=== PATIENT | female | born 1950 | race Caucasian/White ===

== ENCOUNTER 2016-07-17 18:17 | Emergency (ER) | payer MEDICARE, OTHER ==
[2016-07-17] MEDS ORDERED: SODIUM CHLORIDE 0.9% 1,000 ML IV STA (18:40)
--- NOTE | 2016-07-17 18:52 | ED ---
General Adult HPI - General Source: EMS, RN notes reviewed Mode of arrival: EMS Limitations: altered mental status <Alexis Power - Last Filed: 07/17/16 19:58> <Max Craig - Last Filed: 07/17/16 22:29> - General Chief complaint: Fall Stated complaint: Fall/altered Time Seen by Provider: 07/17/16 18:24 - History of Present Illness Initial comments: patient is 66-year-old female who presents emergency room today by EMS, with chief complaint of a fall. Patient does admit to drinking earlier today. She states she had 2 beers. She states she does not remember falling. She states she does have a hematoma to the left side of her head. She denies any neck pain but does admit to a mild headache. she admits a small abrasion of the left knee and right forearm.She denies any other complaints here the emergency room. she denies any cough congestion. Family members at bedside state that she did stand up and fall over hitting her head. States she didn't lose consciousness for approximately a minute. States when she came to she was awake and alert. They deny any other complaints. States she is acting appropriate at this time.Patient denies any recent fever, chills, shortness of breath, chest pain, back pain, abdominal pain, nausea or vomiting, numbness or tingling, dysuria or hematuria, constipation or diarrhea, visual changes, or any other complaints. (Alexis Power) - Related Data Home Medications Medication Instructions Recorded Confirmed Folic Acid 1 mg PO DAILY 07/28/13 07/17/16 Gabapentin [Neurontin] 600 mg PO TID 07/28/13 07/17/16 Hydrocodone/Acetaminophen 1 tab PO TID PRN 07/28/13 07/17/16 [Hydrocodone/Acetaminophen 7.5-325] LORazepam [Ativan] 1 mg PO DAILY PRN 07/28/13 07/17/16 Loratadine [Claritin] 10 mg PO DAILY 07/28/13 07/17/16 Methotrexate Sodium [Methotrexate] 20 mg PO Q7D 07/28/13 07/17/16 Metoprolol Tartrate [Lopressor] 50 mg PO BID 07/28/13 07/17/16 Ciprofloxacin Ophth Soln [Cipro 1 drops LEFT EYE TID 07/17/16 07/17/16 Ophth Soln] Fluticasone Nasal Raven [Flonase 1 spr EA NOSTRIL BID 07/17/16 07/17/16 Nasal Raven] Ketorolac 0.5% Ophth Soln [Acular] 1 drops LEFT EYE BID 07/17/16 07/17/16 predniSONE 5 mg PO DAILY 07/17/16 07/17/16 prednisoLONE ACETATE 1% OPHTH 1 drops LEFT EYE QID 07/17/16 07/17/16 [Pred Forte 1%] Allergies Allergy/AdvReac Type Severity Reaction Status Date / Time No Known Allergies Allergy Verified 07/17/16 18:42 Review of Systems ROS Other: All systems not noted in ROS Statement are negative. <Alexis Power - Last Filed: 07/17/16 19:58> ROS Other: All systems not noted in ROS Statement are negative. <Max Craig - Last Filed: 07/17/16 22:29> ROS Statement: Those systems with pertinent positive or pertinent negative responses have been documented in the HPI. Past Medical History Past Medical History: Fibromyalgia, Hypertension, Rheumatoid Arthritis (RA) Additional Past Medical History / Comment(s): IRREGULAR HEART BEAT, SEASONAL ALLERGIES,SOB WITH ACTIVITY, HX OF INFECTIOUS HEPATITIS 1970, History of Any Multi-Drug Resistant Organisms: MRSA Date of last positivie culture/infection: 03/01/2013 MDRO Source:: RIGHT LEG Additional Past Surgical History / Comment(s): LEFT HAND SURGERY Past Anesthesia/Blood Transfusion Reactions: No Reported Reaction Past Psychological History: Anxiety, Depression Smoking Status: Former smoker Past Alcohol Use History: Daily Additional Past Alcohol Use History / Comment(s): 3-4 BEERS DAILY Past Drug Use History: None Reported - Past Family History Mother Family Medical History: Myocardial Infarction ([place]) Father Family Medical History: Cancer Sister(s) Family Medical History: Cancer, CVA/TIA Brother(s) Family Medical History: Cancer, CVA/TIA <Alexis Power - Last Filed: 07/17/16 19:58> General Exam Limitations: altered mental status <Alexis Power - Last Filed: 07/17/16 19:58> <Max Craig - Last Filed: 07/17/16 22:29> - General Exam Comments Initial Comments: General: The patient is awake and alert, in no distress, and does not appear acutely ill. currently cervical collar Eye: Pupils are equal, round and reactive to light, extra-ocular movements are intact. No nystagmus. There is normal conjunctiva bilaterally. No signs of icterus. Ears, nose, mouth and throat: There are moist mucous membranes and no oral lesions. Neck: The neck is supple, there is no tenderness or JVD. Cardiovascular: There is a regular rate and rhythm. No murmur, rub or gallop is appreciated. Respiratory: Lungs are clear to auscultation, respirations are non-labored, breath sounds are equal. No wheezes, stridor, rales, or rhonchi. Gastrointestinal: Soft, non-distended, non-tender abdomen without masses or organomegaly noted. There is no rebound or guarding present. No CVA tenderness. Bowel sounds are unremarkable. Musculoskeletal: Normal ROM, no tenderness. Strength 5/5. Sensation intact. Pulses equal bilaterally 2+. Neurological: A&O x 3. CN II-XII intact, There are no obvious motor or sensory deficits. Coordination appears grossly intact. Speech is normal. Skin: alto bruises to the extremities. Small abrasion over the left knee and right forearm measuring less than a centimeter. No active bleeding. Hematoma to the left side of the forehead. Mild bruising green in color. Skin is warm and dry and no rashes or lesions are noted. Psychiatric: Cooperative, appropriate mood & affect, normal judgment. (Alexis Power) Course <Alexis Power - Last Filed: 07/17/16 19:58> <Max Craig - Last Filed: 07/17/16 22:29> Vital Signs 07/17/16 07/17/16 07/17/16 18:28 19:03 21:28 Temperature 99.0 F 100.1 F H 98 F Pulse Rate 83 104 H 84 Respiratory 16 16 18 Rate Blood Pressure 184/113 131/89 162/102 O2 Sat by Pulse 93 L 94 L 96 Oximetry - Reevaluation(s) Reevaluation #1: 07/17/16 19:[address] is negative for any acute fracture dislocation of cervical spine. No mass, hemorrhage or midline shift of the brain. There is hematoma to the left side. No other acute abnormalities. Patient's chest x-ray and urinalysis currently pending at this time. Case was discussed signed out to Dr. Craig. ( Alexis Power) Medical Decision Making - Lab Data Result diagrams: 07/17/16 18:38 07/17/16 18:38 <Alexis Power - Last Filed: 07/17/16 19:58> - Lab Data Result diagrams: 07/17/16 18:38 07/17/16 18:38 <Max Craig - Last Filed: 07/17/16 22:29> - Lab Data Lab Results 07/17/16 07/17/16 07/17/16 Range/Units 18:38 18:38 19:55 WBC 5.2 (3.8-10.6) k/uL RBC 3.59 L (3.80-5.40) m/uL Hgb 12.4 (11.4-16.0) gm/dL Hct 36.1 (34.0-46.0) % MCV 100.5 H (80.0-100.0) fL MCH 34.4 (25.0-35.0) pg MCHC 34.3 (31.0-37.0) g/dL RDW 12.9 (11.5-15.5) % Plt Count 228 (150-450) k/uL Neutrophils % 53 % Lymphocytes % 32 % Monocytes % 7 % Eosinophils % 2 % Basophils % 2 % Neutrophils # 2.7 (1.3-7.7) k/uL Lymphocytes # 1.7 (1.0-4.8) k/uL Monocytes # 0.4 (0-1.0) k/uL Eosinophils # 0.1 (0-0.7) k/uL Basophils # 0.1 (0-0.2) k/uL Sodium 132 L (137-145) mmol/L Potassium 4.0 (3.5-5.1) mmol/L Chloride 97 L (98-107) mmol/L Carbon Dioxide 21 L (22-30) mmol/L Anion Gap 14 mmol/L BUN 9 (7-17) mg/dL Creatinine 0.60 (0.52-1.04) mg/dL Est GFR (MDRD) Af Amer >60 (>60 ml/min/1.73 sqM) Est GFR (MDRD) Non-Af >60 (>60 ml/min/1.73 sqM) Glucose 92 (74-99) mg/dL Calcium 8.7 (8.4-10.2) mg/dL Total Bilirubin 0.4 (0.2-1.3) mg/dL AST 55 H (14-36) U/L ALT 48 (9-52) U/L Alkaline Phosphatase 50 (38-126) U/L Total Protein 7.0 (6.3-8.2) g/dL Albumin 4.4 (3.5-5.0) g/dL Lipase 71 (23-300) U/L Urine Color Colorless Urine Appearance Clear (Clear) Urine pH 5.0 (5.0-8.0) Ur Specific [place] 1.002 (1.001-1.035) Urine Protein Negative (Negative) Urine Glucose (UA) Negative (Negative) Urine Ketones Negative (Negative) Urine Blood Negative (Negative) Urine Nitrite Negative (Negative) Urine Bilirubin Negative (Negative) Urine Urobilinogen <2.0 (<2.0) mg/dL Ur Leukocyte Esterase Negative (Negative) Serum Alcohol 293 mg/dL Disposition <Alexis Power - Last Filed: 07/17/16 19:58> <Max Craig - Last Filed: 07/17/16 22:29> Clinical Impression: Fall, Alcohol intoxication, Multiple contusions Disposition: HOME SELF-CARE Condition: Fair Instructions: Alcohol Intoxication (ED) Referrals: Nara Walters MD [Primary Care Provider] - 1-2 days
[2016-07-17 18:53] LABS: Basophils # (A) 0.1 k/uL (0-0.2); Basophils % (A) 2 %; CH 34.1; CHCM 34.1; Eosinophils # (A) 0.1 k/uL (0-0.7); Eosinophils % (A) 2 %; HCT 36.1 % (34.0-46.0); HDW 2.07; HGB 12.4 gm/dL (11.4-16.0); Luc # (Auto) 0.23; Luc % (Auto) 5; Lymphocytes # (A) 1.7 k/uL (1.0-4.8); Lymphocytes % (A) 32 %; MCH 34.4 pg (25.0-35.0); MCHC 34.3 g/dL (31.0-37.0); MCV 100.5 fL (80.0-100.0); Mean Platelet Volume 6.5; Monocytes # (A) 0.4 k/uL (0-1.0); Monocytes % (A) 7 %; Neutrophils # (A) 2.7 k/uL (1.3-7.7); Neutrophils % (A) 53 %; RBC 3.59 m/uL (3.80-5.40); RDW 12.9 % (11.5-15.5); WBC 5.2 k/uL (3.8-10.6); WBC (Perox) 4.94
[2016-07-17 19:08] LABS: ALT 48 U/L (9-52); AST 55 U/L (14-36); Alkaline Phosphatase 50 U/L (38-126); Anion Gap 14 mmol/L; Blood Urea Nitrogen 9 mg/dL (7-17); Calcium 8.7 mg/dL (8.4-10.2); Carbon Dioxide 21 mmol/L (22-30); Chloride 97 mmol/L (98-107); Glucose 92 mg/dL (74-99); Non-African American GFR(MDRD) >60 (>60 ml/min/1.73 sqM); Sodium 132 mmol/L (137-145); Total Bilirubin 0.4 mg/dL (0.2-1.3)
[2016-07-17 19:12] LABS: Alcohol 293 mg/dL
--- NOTE | 2016-07-17 19:53 | CT ---
EXAMINATION TYPE: CT brain davidine wo con DATE OF EXAM: 07/17/2016 7:26 PM COMPARISON: NONE HISTORY: FALL INJURY TODAY. CONFUSION. CT DLP: 1243.0 mGycm Automated exposure control for dose reduction was used. TECHNIQUE: CT scan of the head and cervical spine are performed without contrast. FINDINGS: There is a 3 cm soft tissue hematoma overlying the left frontal bone, with adjacent soft ti ssue swelling, but there is no underlying skull fracture. There is no acute intracranial hemorrhage, mass effect, or midline shift identified. The ventricles and sulci are within normal limits in size . The globes are intact and the visualized sinuses are clear. Cervical spine is visualized in its entirety from C1 through upper thoracic levels and demonstrates s atisfactory alignment without evidence of acute fracture or dislocation. Prevertebral soft tissue ap pears within normal limits. Prominent multilevel cervical spondylosis changes are appreciated. The C1 -C2 articulation is unremarkable. IMPRESSION: 1. There is no acute fracture or dislocation evident in the cervical spine. 2. No acute intracranial hemorrhage, mass effect, or midline shift is seen. However, 3 cm subcutaneou s soft tissue hematoma overlying the left frontal bone.
[2016-07-17 20:07] LABS: Appearance,Urine Clear (Clear); Bilirubin,Urine Negative (Negative); Glucose,Urine (UA) Negative (Negative); Ketones,Urine Negative (Negative); Leukocyte Esterase,Urine Negative (Negative); Nitrite,Urine Negative (Negative); Protein,Urine Negative (Negative); Specific Gravity,Urine 1.002 (1.001-1.035); UA Billing (MACRO vs. MICRO) CHEM; Urobilinogen,Urine <2.0 mg/dL (<2.0)
--- NOTE | 2016-07-17 21:09 | XR ---
EXAMINATION TYPE: XR chest 2V DATE OF EXAM: 07/17/2016 8:39 PM COMPARISON: NONE HISTORY: Trauma TECHNIQUE: Frontal and lateral views of the chest are obtained. FINDINGS: There is no focal air space opacity, pleural effusion, or pneumothorax seen. The cardiac silhouette size is within normal limits. The osseous structures are intact. IMPRESSION: No acute cardiopulmonary process.
[2016-07-17 21:30] VITALS: RESP 18
[2016-07-17 22:38] VITALS: BP 134/81; PULSE 75; TEMP 97.4
== END 2016-07-17 22:39 | disposition home or self-care (01) ==
LOC: EC 18:17
DX: S80.02XA Contusion of left knee, initial encounter (principal); S50.11XA Contusion of right forearm, initial encounter; S00.83XA Contusion of other part of head, initial encounter; F10.129 Alcohol abuse with intoxication, unspecified; R41.82 Altered mental status, unspecified; M79.7 Fibromyalgia; M06.9 Rheumatoid arthritis, unspecified; F41.9 Anxiety disorder, unspecified; Z87.891 Personal history of nicotine dependence; Z79.51 Long term (current) use of inhaled steroids; Z79.899 Other long term (current) drug therapy; Z91.048 Other nonmedicinal substance allergy status; W01.10XA Fall on same level from slipping, tripping and stumbling with subsequent striking against unspecified object, initial encounter
CPT/HCPCS: 36415; 70450; 71020; 72125; 80053; 80320; 81003; 83690; 85025; 96360; 96361; 99284

== ENCOUNTER → 2018-02-24 | Outpatient (CLI) | payer MEDICARE, OTHER ==
--- NOTE | 2018-03-13 08:59 | MM ---
Reason for exam: screening (asymptomatic). History: Patient is postmenopausal and has history of endometrial cancer at age 42. Family history of breast cancer in maternal aunt. Rt. benign breast biopsy. MG 3D Screening Mammo W/Cad Bilateral CC and MLO view(s) were taken. XCCL view(s) were taken of the right breast. The breast tissue is heterogeneously dense. This may lower the sensitivity of mammography. There are benign-appearing round dystrophic left breast calcifications. No discrete abnormality. ASSESSMENT: Benign, BI-RAD 2 RECOMMENDATION: Routine screening mammogram of both breasts in 1 year.
== END | disposition home or self-care (01) ==
LOC: RADMAMWWP 06:54
PROVIDERS: ATTEND Family Medicine
DX: Z12.31 Encounter for screening mammogram for malignant neoplasm of breast (principal)
CPT/HCPCS: 77063; 77067

== ENCOUNTER 2019-09-27 08:17 | Day surgery (SDC) | payer MEDICARE, OTHER ==
[2019-09-16 15:45] VITALS: BMI 17.7
[~2019-09-27 08:17] MED LIST: LACTATED RINGERS 1,000 ML IV SCH; LIDOCAINE 1% (10MG/ML) FOR IV START INTRADERMA PRN
[2019-09-27 08:54] VITALS: TEMP 97.6
[2019-09-27] MEDS ORDERED: fentaNYL (PF) 50 MCG/ML 2 ML AMP ONE (09:39)
[2019-09-27] MEDS ORDERED: MIDAZOLAM 2 MG/2 ML VIAL ONE (09:39)
[2019-09-27] MEDS ORDERED: LIDOCAINE 1% INJ 10MG/ML (20 ML MDV) ONE (09:39)
[2019-09-27] MEDS ORDERED: PROPOFOL 10 MG/ML 20 ML VIAL IV ONE (09:39)
--- NOTE | 2019-09-27 10:13 | P.PCN ---
Date of Procedure: 09/27/19 Description of Procedure: BRIEF HISTORY: Patient is a 69-year-old female presenting for outpatient colonoscopy presenting for malignant neoplasm of the colon. No change in bowel habits, blood per rectum or abdominal pain. Last colonoscopy 10 years ago per her recollection. PROCEDURE PERFORMED: Colonoscopy with polypectomy. PREOPERATIVE DIAGNOSIS: Screening for malignant neoplasm of the colon, last colonoscopy 10 years ago. ESTIMATED BLOOD LOSS: Minimal. IV sedation per Anesthesia. PROCEDURE: After informed consent was obtained, the patient, was brought into the endoscopy unit. IV sedation was administered by Anesthesia under continuous monitoring. Digital rectal examination was normal. Initially the Olympus CF-190 flexible video colonoscope was then inserted in the rectum, gradually advanced into the cecum without any difficulty. Careful examination was performed as the scope was gradually being withdrawn. Ileocecal valve and the appendiceal orifice were visualized and appeared normal. Prep was excellent. Mucosa of the cecum, ascending colon, transverse colon, descending colon, sigmoid colon, and rectum appeared normal. A few scattered diverticula in the left colon. A diminutive 2 mm rectal polyp removed with cold forcep polypectomy. Retroflexion was performed in the rectum and no lesions were seen, moderate-grade internal hemorrhoids noted. The patient tolerated the procedure well. IMPRESSION: Diminutive rectal polyp removed with cold forceps. Mild left colonic diverticulosis. Moderate internal hemorrhoids. RECOMMENDATIONS: Findings of this examination were discussed with the patient. Okay to resume diet. Okay to resume medication. Await pathology from polypectomy. Would recommend repeat colonoscopy in 7 years pending pathology from polypectomy.
[2019-09-27 10:16] VITALS: RESP 30
[2019-09-27 11:24] VITALS: BP 133/70; PULSE 66
== END 2019-09-27 10:45 | disposition home or self-care (01) ==
LOC: ORWHC2ENDO 08:17
PROVIDERS: ATTEND Internal Medicine
DX: Z12.11 Encounter for screening for malignant neoplasm of colon (principal); K62.1 Rectal polyp; K57.30 Diverticulosis of large intestine without perforation or abscess without bleeding; K64.8 Other hemorrhoids; I10 Essential (primary) hypertension; J44.9 Chronic obstructive pulmonary disease, unspecified; Z87.891 Personal history of nicotine dependence; F41.9 Anxiety disorder, unspecified; F32.9 Major depressive disorder, single episode, unspecified; M06.9 Rheumatoid arthritis, unspecified; M79.7 Fibromyalgia; Z79.51 Long term (current) use of inhaled steroids; Z79.52 Long term (current) use of systemic steroids; Z79.899 Other long term (current) drug therapy
CPT/HCPCS: 45380; J2250; J2001; J3010; J2704; 88305

== ENCOUNTER → 2021-04-25 | Outpatient (CLI) | payer MEDICARE, OTHER ==
--- NOTE | 2021-04-26 13:25 | MM ---
Reason for exam: screening (asymptomatic). Last mammogram was performed 3 years and 2 months ago. History: Patient is postmenopausal and has history of endometrial cancer at age 42. Family history of breast cancer in maternal aunt. Physical Findings: A clinical breast exam by your physician is recommended on an annual basis and results should be correlated with mammographic findings. MG 3D Screening Mammo W/Cad Bilateral CC and MLO view(s) were taken. Prior study comparison: February 24, 2018, bilateral MG 3d screening mammo w/cad. July 05, 2014, mammogram, performed at [facility]. June 28, 2014, mammogram, performed at [facility]. The breast tissue is heterogeneously dense. This may lower the sensitivity of mammography. There is no discrete abnormality. No significant changes when compared with prior studies. ASSESSMENT: Negative, BI-RAD 1 RECOMMENDATION: Routine screening mammogram of both breasts in 1 year.
== END | disposition home or self-care (01) ==
LOC: RADMAMWWP 11:45
PROVIDERS: ATTEND Family Medicine
DX: Z12.31 Encounter for screening mammogram for malignant neoplasm of breast (principal); Z78.0 Asymptomatic menopausal state; Z80.3 Family history of malignant neoplasm of breast
CPT/HCPCS: 77063; 77067

== ENCOUNTER 2021-05-17 10:44 | Emergency (ER) | payer MEDICARE, OTHER ==
[2021-05-17 10:49] VITALS: RESP 18
[2021-05-17 12:33] LABS: Basophils % (A) 1 %; Eosinophils # (A) 0.2 k/uL (0-0.7); Eosinophils % (A) 2 %; HCT 43.6 % (34.0-46.0); HGB 14.3 gm/dL (11.4-16.0); Lymphocytes # (A) 1.5 k/uL (1.0-4.8); Lymphocytes % (A) 17 %; MCH 33.9 pg (25.0-35.0); MCHC 32.8 g/dL (31.0-37.0); MCV 103.4 fL (80.0-100.0); Macrocytosis Slight; Mean Platelet Volume 7.5; Monocytes # (A) 0.3 k/uL (0-1.0); Monocytes % (A) 4 %; Neutrophils # (A) 6.8 k/uL (1.3-7.7); Neutrophils % (A) 76 %; Platelet Count 265 k/uL (150-450); RBC 4.22 m/uL (3.80-5.40); RDW 13.1 % (11.5-15.5); WBC 8.9 k/uL (3.8-10.6)
--- NOTE | 2021-05-17 12:41 | XR ---
EXAMINATION TYPE: XR chest 2V DATE OF EXAM: 05/17/2021 COMPARISON: 07/17/2016 TECHNIQUE: PA and lateral views submitted. HISTORY: Dysrhythmia FINDINGS: The lungs are clear and there is no pneumothorax, pleural effusion, or focal pneumonia. Hyperinflat ion. No overt failure. Chronic widening of the right AC joint correlate for any acute joint injury. C orrelate for COPD. Hypertrophic and degenerative change of the spine. IMPRESSION: 1. No acute process. Correlate for COPD.
[2021-05-17 12:43] LABS: ALT 23 U/L (4-34); AST 35 U/L (14-36); African American GFR (CKD) >90 (>60 ml/min/1.73 sqM); Albumin 4.7 g/dL (3.5-5.0); Alkaline Phosphatase 61 U/L (38-126); Anion Gap 7 mmol/L; Blood Urea Nitrogen 18 mg/dL (7-17); Calcium 9.3 mg/dL (8.4-10.2); Carbon Dioxide 24 mmol/L (22-30); Chloride 105 mmol/L (98-107); Glucose 119 mg/dL (74-99); Magnesium 2.1 mg/dL (1.6-2.3); Non-African American GFR(CKD) >90 (>60 ml/min/1.73 sqM); Sodium 136 mmol/L (137-145); Total Bilirubin 1.1 mg/dL (0.2-1.3); Total Protein 8.1 g/dL (6.3-8.2)
[2021-05-17 12:45] LABS: Potassium 4.3 mmol/L (3.5-5.1)
[2021-05-17 13:02] LABS: INR 0.9 (<1.2); Partial Thromboplastin Time 22.8 sec (22.0-30.0); Prothrombin Time 10.4 sec (9.0-12.0)
--- NOTE | 2021-05-17 13:18 | ED ---
General Adult HPI - General Chief complaint: Arrhythmia/Palpitations Stated complaint: ML Time Seen by Provider: 05/17/21 12:05 Source: patient, RN notes reviewed, old records reviewed Mode of arrival: ambulatory Limitations: no limitations - History of Present Illness Initial comments: 71-year-old female presenting with 2 complaints, first complaint is one month of sore throat and painful swallowing. She has history of rheumatoid arthritis and is on daily steroids. She also has had palpitations which is been also intermittent over the past one month. There is no associated chest pain. She's had no fever. She has had mild dyspnea which is baseline for her with history of COPD. No vomiting or diarrhea. She is able to swallow but has pain with swallowing. - Related Data Home Medications Medication Instructions Recorded Confirmed Folic Acid 1 mg PO DAILY 07/28/13 09/16/19 Gabapentin [Neurontin] 600 mg PO TID 07/28/13 09/16/19 Hydrocodone/Acetaminophen 1 tab PO TID PRN 07/28/13 09/27/19 [Hydrocodone/Acetaminophen 7.5-325] LORazepam [Ativan] 1 mg PO DAILY PRN 07/28/13 09/27/19 Metoprolol Tartrate [Lopressor] 50 mg PO BID 07/28/13 09/16/19 metHOTREXate sodium [Methotrexate] 20 mg PO Q7D 07/28/13 09/16/19 predniSONE 5 mg PO QAM 07/17/16 09/23/19 Cetirizine HCl [Zyrtec] 10 mg PO DAILY 09/16/19 09/16/19 Fluticasone/Vilanterol [Breo 1 inhalation INHALATION QAM 09/16/19 09/23/19 Ellipta 200-25 Mcg INH] Ibuprofen [Motrin] 600 mg PO Q8HR PRN 09/16/19 09/16/19 Propylene Glycol/Peg 400 [Systane 1 drop BOTH EYES DIRECTED PRN 09/16/19 09/16/19 Ultra 0.4-0.3% Eye Drp] Umeclidinium Queen [Incruse 1 puff INHALATION QAM 09/16/19 09/23/19 Ellipta] Zolpidem [Ambien] 10 mg PO HS PRN 09/16/19 09/27/19 Previous Rx's Medication Instructions Recorded Fluconazole [Diflucan] 200 mg PO DAILY #14 tab 03/18/22 Nystatin [Nystatin Oral Susp] 400,000 unit PO Q6H 7 Days #200 ml 05/17/21 Allergies Allergy/AdvReac Type Severity Reaction Status Date / Time No Known Allergies Allergy Verified 09/27/19 08:38 Review of Systems ROS Statement: Those systems with pertinent positive or pertinent negative responses have been documented in the HPI. ROS Other: All systems not noted in ROS Statement are negative. Past Medical History Past Medical History: Cancer, COPD, Fibromyalgia, Hypertension, Rheumatoid Arthritis (RA), Skin Disorder Additional Past Medical History / Comment(s): IRREGULAR HEART BEAT, SEASONAL ALLERGIES,SOB WITH ACTIVITY, HX OF INFECTIOUS HEPATITIS 1970, cervical cancer years ago, finished antibiotic today for healing scratches from nieghbor[employer] dog- both legs near ankles, daily steroids for "several years" for RA History of Any Multi-Drug Resistant Organisms: MRSA Date of last positivie culture/infection: 03/01/2013 MDRO Source:: RIGHT LEG Additional Past Surgical History / Comment(s): RIGHT HAND SURGERY, colonoscopy, colposcopy years ago Past Anesthesia/Blood Transfusion Reactions: No Reported Reaction Past Psychological History: Anxiety, Depression Smoking Status: Former smoker - Past Family History Mother Family Medical History: Myocardial Infarction ([place]) Father Family Medical History: Cancer Sister(s) Family Medical History: Cancer, CVA/TIA Brother(s) Family Medical History: Cancer, CVA/TIA General Exam Limitations: no limitations General appearance: alert, in no apparent distress Head exam: Present: atraumatic, normocephalic Eye exam: Present: normal appearance, PERRL, EOMI ENT exam: Present: other (Posterior oropharynx mildly erythematous with oral candidiasis) Respiratory exam: Present: normal lung sounds bilaterally, decreased breath sounds. Absent: respiratory distress Cardiovascular Exam: Present: regular rate, normal rhythm GI/Abdominal exam: Present: soft. Absent: distended, tenderness, guarding, rebound Extremities exam: Present: normal inspection, normal capillary refill Neurological exam: Present: alert, oriented X3, CN II-XII intact. Absent: motor sensory deficit Psychiatric exam: Present: normal affect, normal mood Skin exam: Present: warm, dry, intact. Absent: cyanosis, diaphoretic Course Vital Signs 05/17/21 10:47 Temperature 98.2 F Pulse Rate 94 Respiratory 18 Rate Blood Pressure 125/82 O2 Sat by Pulse 96 Oximetry - Reevaluation(s) Reevaluation #1: 05/17/21 13:49 Patient eager for discharge. EKG Findings - EKG Comments: EKG Findings:: KG: Sinus rhythm with first-degree AV block, low voltage rate of 88, TN interval 235, QRS duration 74, QTC 382 Medical Decision Making - Medical Decision Making 71-year-old female presenting with sore throat and painful swallowing. She does have oral candidiasis on exam. Additionally she's had some palpitations. This is evaluated with EKG, chest x-ray, laboratory testing which is essentially unremarkable. I do suggest this patient should follow with gastroenterology regarding endoscopy for this painful swallowing. Additionally she should continue to follow with her primary care physician. Return parameters are discussed. She is prescribed nystatin and fluconazole. - Lab Data Result diagrams: 05/17/21 12:24 05/17/21 12:24 Lab Results 05/17/21 05/17/21 05/17/21 Range/Units 12:24 12:24 12:24 WBC 8.9 (3.8-10.6) k/uL RBC 4.22 (3.80-5.40) m/uL Hgb 14.3 (11.4-16.0) gm/dL Hct 43.6 (34.0-46.0) % MCV 103.4 H (80.0-100.0) fL MCH 33.9 (25.0-35.0) pg MCHC 32.8 (31.0-37.0) g/dL RDW 13.1 (11.5-15.5) % Plt Count 265 (150-450) k/uL MPV 7.5 Neutrophils % 76 % Lymphocytes % 17 % Monocytes % 4 % Eosinophils % 2 % Basophils % 1 % Neutrophils # 6.8 (1.3-7.7) k/uL Lymphocytes # 1.5 (1.0-4.8) k/uL Monocytes # 0.3 (0-1.0) k/uL Eosinophils # 0.2 (0-0.7) k/uL Basophils # 0.0 (0-0.2) k/uL Macrocytosis Slight PT 10.4 (9.0-12.0) sec INR 0.9 (<1.2) APTT 22.8 (22.0-30.0) sec Sodium 136 L (137-145) mmol/L Potassium 4.3 (3.5-5.1) mmol/L Chloride 105 (98-107) mmol/L Carbon Dioxide 24 (22-30) mmol/L Anion Gap 7 mmol/L BUN 18 H (7-17) mg/dL Creatinine 0.60 (0.52-1.04) mg/dL Est GFR (CKD-EPI)AfAm >90 (>60 ml/min/1.73 sqM) Est GFR (CKD-EPI)NonAf >90 (>60 ml/min/1.73 sqM) Glucose 119 H (74-99) mg/dL Calcium 9.3 (8.4-10.2) mg/dL Magnesium 2.1 (1.6-2.3) mg/dL Total Bilirubin 1.1 (0.2-1.3) mg/dL AST 35 (14-36) U/L ALT 23 (4-34) U/L Alkaline Phosphatase 61 (38-126) U/L Troponin I (0.000-0.034) ng/mL Total Protein 8.1 (6.3-8.2) g/dL Albumin 4.7 (3.5-5.0) g/dL 05/17/21 Range/Units 12:24 WBC (3.8-10.6) k/uL RBC (3.80-5.40) m/uL Hgb (11.4-16.0) gm/dL Hct (34.0-46.0) % MCV (80.0-100.0) fL MCH (25.0-35.0) pg MCHC (31.0-37.0) g/dL RDW (11.5-15.5) % Plt Count (150-450) k/uL MPV Neutrophils % % Lymphocytes % % Monocytes % % Eosinophils % % Basophils % % Neutrophils # (1.3-7.7) k/uL Lymphocytes # (1.0-4.8) k/uL Monocytes # (0-1.0) k/uL Eosinophils # (0-0.7) k/uL Basophils # (0-0.2) k/uL Macrocytosis PT (9.0-12.0) sec INR (<1.2) APTT (22.0-30.0) sec Sodium (137-145) mmol/L Potassium (3.5-5.1) mmol/L Chloride (98-107) mmol/L Carbon Dioxide (22-30) mmol/L Anion Gap mmol/L BUN (7-17) mg/dL Creatinine (0.52-1.04) mg/dL Est GFR (CKD-EPI)AfAm (>60 ml/min/1.73 sqM) Est GFR (CKD-EPI)NonAf (>60 ml/min/1.73 sqM) Glucose (74-99) mg/dL Calcium (8.4-10.2) mg/dL Magnesium (1.6-2.3) mg/dL Total Bilirubin (0.2-1.3) mg/dL AST (14-36) U/L ALT (4-34) U/L Alkaline Phosphatase (38-126) U/L Troponin I <0.012 (0.000-0.034) ng/mL Total Protein (6.3-8.2) g/dL Albumin (3.5-5.0) g/dL Disposition Clinical Impression: Palpitations, Thrush of mouth and esophagus Disposition: HOME SELF-CARE Condition: Good Instructions (If sedation given, give patient instructions): Heart Palpitations (ED), Oral Candidiasis (ED) Prescriptions: Fluconazole [Diflucan] 200 mg PO DAILY #14 tab Nystatin [Nystatin Oral Susp] 400,000 unit PO Q6H 7 Days #200 ml Is patient prescribed a controlled substance at d/c from ED?: No Referrals: Nara Walters MD [Primary Care Provider] - 1-2 days Lindsay Oneill MD [STAFF PHYSICIAN] - 1-2 days Time of Disposition: 13:44
[2021-05-17 14:52] VITALS: BP 127/80; PULSE 68; TEMP 98.7
== END 2021-05-17 13:59 | disposition home or self-care (01) ==
LOC: EC 10:44
DX: R00.2 Palpitations (principal); B37.0 Candidal stomatitis; Z87.891 Personal history of nicotine dependence; J44.9 Chronic obstructive pulmonary disease, unspecified; I10 Essential (primary) hypertension; M06.9 Rheumatoid arthritis, unspecified; M79.7 Fibromyalgia; Z79.899 Other long term (current) drug therapy; Z79.51 Long term (current) use of inhaled steroids
CPT/HCPCS: 36415; 71046; 80053; 83735; 84484; 85025; 85610; 85730; 93005; 99285

== ENCOUNTER 2021-06-12 12:18 | Observation (INO) | payer MEDICARE, OTHER ==
[2021-06-12] MEDS ORDERED: IPRATROPIUM 0.5 MG/2.5 ML NEBU INHALATION STA (12:47)
[2021-06-12] MEDS ORDERED: ALBUTEROL NEBULIZED 2.5 MG/3 ML INHALATION STA (12:47)
[2021-06-12] MEDS ORDERED: methylPREDNISolone SOD SUCCI 125 MG/2 ML VIAL IV STA (12:47)
--- NOTE | 2021-06-12 12:56 | ED ---
General Adult HPI - General Chief complaint: Shortness of Breath Stated complaint: ML Time Seen by Provider: 06/12/21 12:20 Source: patient, RN notes reviewed, old records reviewed Mode of arrival: wheelchair Limitations: no limitations - History of Present Illness Initial comments: This is a 71-year-old female presents emergency Department complaining of difficulty breathing over the last 2 weeks and she states is getting progressively worse. Patient states she has been diagnosed with COPD in the past - Related Data Home Medications Medication Instructions Recorded Confirmed Folic Acid 1 mg PO DAILY 07/28/13 06/12/21 Gabapentin [Neurontin] 600 mg PO BID 07/28/13 06/12/21 Hydrocodone/Acetaminophen 1 tab PO Q8H PRN 07/28/13 06/12/21 [Hydrocodone/Acetaminophen 7.5-325] Metoprolol Tartrate [Lopressor] 50 mg PO BID 07/28/13 06/12/21 metHOTREXate sodium [Methotrexate] 10 mg PO MO 07/28/13 06/12/21 predniSONE 5 mg PO DAILY 07/17/16 06/12/21 Cetirizine HCl [Zyrtec] 10 mg PO DAILY 09/16/19 06/12/21 Fluticasone/Vilanterol [Breo 1 puff INHALATION RT-DAILY 09/16/19 06/12/21 Ellipta 200-25 Mcg INH] Umeclidinium [place] [Incruse 1 puff INHALATION RT-DAILY 09/16/19 06/12/21 Ellipta] Zolpidem [Ambien] 10 mg PO HS PRN 09/16/19 06/12/21 Dorzolamide HCl/Pf [Dorzolamide 2% 1 drop BOTH EYES DAILY 06/12/21 06/12/21 Eye Drop] Ibuprofen [Motrin] 800 mg PO Q8H PRN 06/12/21 06/12/21 Latanoprost [Xalatan 0.005%] 1 drop RIGHT EYE HS 06/12/21 06/12/21 Tocilizumab [Actemra] 162 mg SQ Q14D 06/12/21 06/12/21 Triamcinolone 0.1% Ointment 1 applic TOPICAL BID 06/12/21 06/12/21 [Kenalog 0.1% Ointment] Allergies Allergy/AdvReac Type Severity Reaction Status Date / Time No Known Allergies Allergy Verified 06/12/21 13:32 Review of Systems ROS Statement: Those systems with pertinent positive or pertinent negative responses have been documented in the HPI. ROS Other: All systems not noted in ROS Statement are negative. Past Medical History Past Medical History: Cancer, COPD, Fibromyalgia, Hypertension, Rheumatoid Arthritis (RA), Skin Disorder Additional Past Medical History / Comment(s): IRREGULAR HEART BEAT, SEASONAL ALLERGIES,SOB WITH ACTIVITY, HX OF INFECTIOUS HEPATITIS 1970, cervical cancer years ago, finished antibiotic today for healing scratches from nieghbor[employer] dog- both legs near ankles, daily steroids for "several years" for RA History of Any Multi-Drug Resistant Organisms: MRSA Date of last positivie culture/infection: 03/01/2013 MDRO Source:: RIGHT LEG Additional Past Surgical History / Comment(s): RIGHT HAND SURGERY, colonoscopy, colposcopy years ago Past Anesthesia/Blood Transfusion Reactions: No Reported Reaction Past Psychological History: Anxiety, Depression Smoking Status: Former smoker Past Alcohol Use History: Occasional Past Drug Use History: None Reported - Past Family History Mother Family Medical History: Myocardial Infarction ([place]) Father Family Medical History: Cancer Sister(s) Family Medical History: Cancer, CVA/TIA Brother(s) Family Medical History: Cancer, CVA/TIA General Exam - General Exam Comments Initial Comments: GENERAL: Patient is well-developed and well-nourished. Patient is nontoxic and well- hydrated and is in mild distress. ENT: Neck is soft and supple. No significant lymphadenopathy is noted. Oropharynx is clear. Moist mucous membranes. Neck has full range of motion without eliciting any pain. EYES: The sclera were anicteric and conjunctiva were pink and moist. Extraocular movements were intact and pupils were equal round and reactive to light. Eyelids were unremarkable. PULMONARY: Patient has diffuse expiratory wheezing CARDIOVASCULAR: There is a regular rate and rhythm without any murmurs gallops or rubs. ABDOMEN: Soft and nontender with normal bowel sounds. SKIN: Skin is clear with no lesions or rashes and otherwise unremarkable. NEUROLOGIC: Patient is alert and oriented x3. Cranial nerves II through XII are grossly intact. Motor and sensory are also intact. Normal speech, volume and content. Symmetrical smile. MUSCULOSKELETAL: Normal extremities with adequate strength and full range of motion. Patient has scant edema bilaterally LYMPHATICS: No significant lymphadenopathy is noted PSYCHIATRIC: Normal psychiatric evaluation. Limitations: no limitations Course Vital Signs 06/12/21 06/12/21 06/12/21 12:19 12:53 12:55 Temperature 97.7 F Pulse Rate 106 H 86 Respiratory 24 22 Rate Blood Pressure 174/103 137/95 O2 Sat by Pulse 92 L 95 97 Oximetry 06/12/21 06/12/21 13:14 13:23 Temperature Pulse Rate 92 76 Respiratory Rate Blood Pressure O2 Sat by Pulse Oximetry Medical Decision Making - Medical Decision Making Sinus rhythm at 100 beats a minute QRS is 84 QT interval 336 QTC is 05/08/1992. Patient has an occasional PAC. No ST segment elevation or depression Chest x-ray shows small pleural effusions and COPD. Patient received multiple breathing treatments and steroids in the ER and she continued to wheeze. Patient also received antibiotics because of the chronic cough and sputum production. - Lab Data Result diagrams: 06/12/21 12:50 06/12/21 12:50 Lab Results 06/12/21 06/12/21 06/12/21 Range/Units 12:50 12:50 12:50 WBC 13.0 H (3.8-10.6) k/uL RBC 3.99 (3.80-5.40) m/uL Hgb 13.4 (11.4-16.0) gm/dL Hct 40.3 (34.0-46.0) % MCV 101.1 H (80.0-100.0) fL MCH 33.7 (25.0-35.0) pg MCHC 33.3 (31.0-37.0) g/dL RDW 13.9 (11.5-15.5) % Plt Count 261 (150-450) k/uL MPV 7.9 Neutrophils % 88 % Lymphocytes % 7 % Monocytes % 2 % Eosinophils % 1 % Basophils % 0 % Neutrophils # 11.5 H (1.3-7.7) k/uL Lymphocytes # 0.9 L (1.0-4.8) k/uL Monocytes # 0.3 (0-1.0) k/uL Eosinophils # 0.1 (0-0.7) k/uL Basophils # 0.0 (0-0.2) k/uL Macrocytosis Slight PT 10.2 (9.0-12.0) sec INR 0.9 (<1.2) APTT 22.2 (22.0-30.0) sec Sodium 130 L (137-145) mmol/L Potassium 4.6 (3.5-5.1) mmol/L Chloride 100 (98-107) mmol/L Carbon Dioxide 20 L (22-30) mmol/L Anion Gap 10 mmol/L BUN 15 (7-17) mg/dL Creatinine 0.68 (0.52-1.04) mg/dL Est GFR (CKD-EPI)AfAm >90 (>60 ml/min/1.73 sqM) Est GFR (CKD-EPI)NonAf 90 (>60 ml/min/1.73 sqM) Glucose 117 H (74-99) mg/dL Plasma Lactic Acid Lance (0.7-2.0) mmol/L Calcium 8.7 (8.4-10.2) mg/dL Magnesium 1.9 (1.6-2.3) mg/dL Total Bilirubin 1.3 (0.2-1.3) mg/dL AST 41 H (14-36) U/L ALT 20 (4-34) U/L Alkaline Phosphatase 61 (38-126) U/L Troponin I (0.000-0.034) ng/mL Total Protein 7.7 (6.3-8.2) g/dL Albumin 4.3 (3.5-5.0) g/dL 06/12/21 06/12/21 Range/Units 12:50 12:51 WBC (3.8-10.6) k/uL RBC (3.80-5.40) m/uL Hgb (11.4-16.0) gm/dL Hct (34.0-46.0) % MCV (80.0-100.0) fL MCH (25.0-35.0) pg MCHC (31.0-37.0) g/dL RDW (11.5-15.5) % Plt Count (150-450) k/uL MPV Neutrophils % % Lymphocytes % % Monocytes % % Eosinophils % % Basophils % % Neutrophils # (1.3-7.7) k/uL Lymphocytes # (1.0-4.8) k/uL Monocytes # (0-1.0) k/uL Eosinophils # (0-0.7) k/uL Basophils # (0-0.2) k/uL Macrocytosis PT (9.0-12.0) sec INR (<1.2) APTT (22.0-30.0) sec Sodium (137-145) mmol/L Potassium (3.5-5.1) mmol/L Chloride (98-107) mmol/L Carbon Dioxide (22-30) mmol/L Anion Gap mmol/L BUN (7-17) mg/dL Creatinine (0.52-1.04) mg/dL Est GFR (CKD-EPI)AfAm (>60 ml/min/1.73 sqM) Est GFR (CKD-EPI)NonAf (>60 ml/min/1.73 sqM) Glucose (74-99) mg/dL Plasma Lactic Acid Lance 1.3 (0.7-2.0) mmol/L Calcium (8.4-10.2) mg/dL Magnesium (1.6-2.3) mg/dL Total Bilirubin (0.2-1.3) mg/dL AST (14-36) U/L ALT (4-34) U/L Alkaline Phosphatase (38-126) U/L Troponin I <0.012 (0.000-0.034) ng/mL Total Protein (6.3-8.2) g/dL Albumin (3.5-5.0) g/dL Disposition Clinical Impression: Acute exacerbation of chronic obstructive pulmonary disease, Bronchitis, Hyponatremia Disposition: ADMITTED IP TO THIS HOSP Referrals: Nara Walters MD [Primary Care Provider] - 1-2 days Time of Disposition: 14:55
[2021-06-12 13:21] LABS: Basophils % (A) 0 %; Eosinophils # (A) 0.1 k/uL (0-0.7); Eosinophils % (A) 1 %; HCT 40.3 % (34.0-46.0); HGB 13.4 gm/dL (11.4-16.0); Lymphocytes # (A) 0.9 k/uL (1.0-4.8); Lymphocytes % (A) 7 %; MCH 33.7 pg (25.0-35.0); MCHC 33.3 g/dL (31.0-37.0); MCV 101.1 fL (80.0-100.0); Macrocytosis Slight; Mean Platelet Volume 7.9; Monocytes # (A) 0.3 k/uL (0-1.0); Monocytes % (A) 2 %; Neutrophils # (A) 11.5 k/uL (1.3-7.7); Neutrophils % (A) 88 %; Platelet Count 261 k/uL (150-450); RBC 3.99 m/uL (3.80-5.40); RDW 13.9 % (11.5-15.5)
[2021-06-12 13:30] LABS: INR 0.9 (<1.2); Partial Thromboplastin Time 22.2 sec (22.0-30.0); Prothrombin Time 10.2 sec (9.0-12.0)
--- NOTE | 2021-06-12 13:31 | XR ---
EXAMINATION TYPE: XR chest 2V DATE OF EXAM: 06/12/2021 COMPARISON: Chest x-ray May 17, 2021 HISTORY: Shortness of breath. TECHNIQUE: Frontal and lateral views of the chest are obtained. FINDINGS: There is chronic emphysematous change with tiny bilateral pleural effusions on current radhames dy. No suspicious focal airspace opacity or pneumothorax seen bilaterally The cardiac silhouette siz e remains within normal limits. Underlying Scoliosis is present.. IMPRESSION: Chronic changes with new tiny bilateral pleural effusions.
[2021-06-12 13:52] LABS: ALT 20 U/L (4-34); African American GFR (CKD) >90 (>60 ml/min/1.73 sqM); Albumin 4.3 g/dL (3.5-5.0); Anion Gap 10 mmol/L; Blood Urea Nitrogen 15 mg/dL (7-17); Calcium 8.7 mg/dL (8.4-10.2); Carbon Dioxide 20 mmol/L (22-30); Chloride 100 mmol/L (98-107); Glucose 117 mg/dL (74-99); Non-African American GFR(CKD) 90 (>60 ml/min/1.73 sqM); Sodium 130 mmol/L (137-145); Total Bilirubin 1.3 mg/dL (0.2-1.3); Total Protein 7.7 g/dL (6.3-8.2)
[2021-06-12 13:55] LABS: AST 41 U/L (14-36); Alkaline Phosphatase 61 U/L (38-126); Magnesium 1.9 mg/dL (1.6-2.3); Potassium 4.6 mmol/L (3.5-5.1)
[2021-06-12] MEDS ORDERED: NALOXONE 0.4 MG/ML 1 ML VIAL IVP PRN (15:55)
[2021-06-12] MEDS ORDERED: CALCIUM CARBONATE 500 MG CHEWABLE PO PRN (15:55)
[2021-06-12] MEDS ORDERED: ACETAMINOPHEN TAB 325 MG TAB PO PRN (15:55)
[2021-06-12] MEDS ORDERED: ZOLPIDEM 10 MG TAB PO PRN (15:56)
[2021-06-12] MEDS ORDERED: HYDROcodone/APAP 7.5-325MG 1 EACH TAB PO PRN (15:56)
[2021-06-12] MEDS ORDERED: IBUPROFEN 800 MG TAB PO PRN (15:56)
[2021-06-12] MEDS ORDERED: IPRATROPIUM-ALBUTEROL 3 ML NEB INHALATION PRN ×2 (16:08→16:26)
--- NOTE | 2021-06-12 17:43 | P.HPIM ---
History of Present Illness H&P Date: 06/12/21 History of Presenting Illness: Patient is a very pleasant 71-year-old female with a past medical history of COPD, fibromyalgia, hypertension, cervical cancer, anxiety, former nicotine dependence, and rheumatoid arthritis. Patient presented to the emergency department with a chief complaint of increasing shortness of breath over the past 2 weeks progressively worsening accompanied by increased chronic cough. Patient reports shortness of breath is worse with exertion and does improve at rest. She denies having any changes in her sputum production. She denies having any recent infections or exposure to known ill contacts, fevers, chills, diaphoresis, headache, lightheadedness, dizziness, chest pain, palpitations, nausea, vomiting, or experiencing any pain/numbness/tingling/swelling in her extremities. In the emergency department patient underwent full evaluation. P atient was found to be tachycardic in the 106 bpm, tachypnea with respiratory rate of 24 breaths per minute, hypertensive with blood pressure 174/103, and 92% on room air. Patient was placed on 2 L O2 via nasal cannula and given breathing treatment, steroids, and one dose of Rocephin. Clinically patient has improved with heart rate 69, blood pressure 137/95, and SpO2 of 97% on 2 L O2 via nasal c annula. EKG was completed revealing normal sinus rhythm at 100 bpm with occasional PACs, no T-wave or ST abnormalities noted showing no signs of acute ischemia. Chest x-ray revealing chronic emphysematous changes with tiny new bilateral pleural effusions. Patient admitted under our services at this time. Review of systems: Pertinent positives and negatives as discussed in HPI, a complete review of systems was performed and all other systems are negative. Physical exam: Vital signs reviewed and stable. General: Nontoxic, no distress and appears stated age. Derm: Skin warm and dry, normal coloration for ethnicity. Head: Atraumatic, normocephalic and symmetric. Eyes: EOMs intact, no lid lag, and anicteric sclera Mouth: no lip lesions, mucus membranes moist Cardiovascular: regular rate and rhythm with normal S1S2, no murmur, positive posterior tibial pulses bilaterally, and cap refill < 2 seconds. Lungs: Respirations even, regular, and unlabored on room air. Lungs diminished with diffuse wheezing throughout. No rhonchi, no rales, no crackles and no accessory muscle usage. Abdominal: soft, nontender to palpation, no guarding, no appreciable organomegaly Ext: ROM intact. No gross muscle atrophy, no edema, no contractures. Neuro: Speech clear, face symmetrical and CN II-XII grossly intact with no noted focal neuro deficits. Psych: Alert and oriented to person, place, time, and situation. Appropriate and pleasant affect. Assessment and Plan of Care: COPD with acute exacerbation -Oxygenation to be administered and titrated as needed to maintain SPO2 equal to or greater than 92% -Telemetry monitoring. -Monitor Pulse-oximetry -Duonebs as needed for SOB and/or wheezing -Incentive Spirometry -Steroids: Solu-Medrol -Antibiotics: Azithromycin Hypertension -Monitor vital signs and continue daily medication regimen with metoprolol. Rheumatoid arthritis -Hold Tocilizumab and methotrexate The patient is admitted with an anticipated less than 2 midnight stay for evaluation of COPD exacerbation. CODE STATUS: Full code DVT prophylaxis: Lovenox Discussed with: Patient and RN Anticipated discharge date: 1-[address]: Home A total of 40 minutes was spent on the care of this complex patient more than 50% of the time was spent in counseling and care coordination. Ellis Freed NP rendered care for this patient independently, reviewed the findings and plan as documented in the note above. I did not physically speak with or examine the patient on this date. Past Medical History Past Medical History: Cancer, COPD, Fibromyalgia, Hypertension, Rheumatoid Arthritis (RA), Skin Disorder Additional Past Medical History / Comment(s): IRREGULAR HEART BEAT, SEASONAL ALLERGIES,SOB WITH ACTIVITY, HX OF INFECTIOUS HEPATITIS 1970, cervical cancer years ago, finished antibiotic today for healing scratches from [employer] dog- both legs near ankles, daily steroids for "several years" for RA History of Any Multi-Drug Resistant Organisms: MRSA Date of last positivie culture/infection: 03/01/2013 MDRO Source:: RIGHT LEG Additional Past Surgical History / Comment(s): RIGHT HAND SURGERY, colonoscopy, colposcopy years ago Past Anesthesia/Blood Transfusion Reactions: No Reported Reaction Past Psychological History: Anxiety, Depression Smoking Status: Former smoker Past Alcohol Use History: Occasional Past Drug Use History: None Reported - Past Family History Mother Family Medical History: Myocardial Infarction ([place]) Father Family Medical History: Cancer Sister(s) Family Medical History: Cancer, CVA/TIA Brother(s) Family Medical History: Cancer, CVA/TIA Medications and Allergies Home Medications Medication Instructions Recorded Confirmed Type Folic Acid 1 mg PO DAILY 07/28/13 06/12/21 History Gabapentin [Neurontin] 600 mg PO BID 07/28/13 06/12/21 History Hydrocodone/Acetaminophen 1 tab PO Q8H PRN 07/28/13 06/12/21 History [Hydrocodone/Acetaminophen 7.5-325] Metoprolol Tartrate [Lopressor] 50 mg PO BID 07/28/13 06/12/21 History metHOTREXate sodium [Methotrexate] 10 mg PO MO 07/28/13 06/12/21 History predniSONE 5 mg PO DAILY 07/17/16 06/12/21 History Cetirizine HCl [Zyrtec] 10 mg PO DAILY 09/16/19 06/12/21 History Fluticasone/Vilanterol [Breo 1 puff INHALATION RT-DAILY 09/16/19 06/12/21 History Ellipta 200-25 Mcg INH] Umeclidinium [place] [Incruse 1 puff INHALATION RT-DAILY 09/16/19 06/12/21 History Ellipta] Zolpidem [Ambien] 10 mg PO HS PRN 09/16/19 06/12/21 History Dorzolamide HCl/Pf [Dorzolamide 2% 1 drop BOTH EYES DAILY 06/12/21 06/12/21 History Eye Drop] Ibuprofen [Motrin] 800 mg PO Q8H PRN 06/12/21 06/12/21 History Latanoprost [Xalatan 0.005%] 1 drop RIGHT EYE HS 06/12/21 06/12/21 History Tocilizumab [Actemra] 162 mg SQ Q14D 06/12/21 06/12/21 History Triamcinolone 0.1% Ointment 1 applic TOPICAL BID 06/12/21 06/12/21 History [Kenalog 0.1% Ointment] Allergies Allergy/AdvReac Type Severity Reaction Status Date / Time No Known Allergies Allergy Verified 06/12/21 13:32 Physical Exam Osteopathic Statement: *. No significant issues noted on an osteopathic structural exam other than those noted in the History and Physical/Consult. Vitals: Vital Signs Temp Pulse Resp BP Pulse Ox 06/12/21 15:42 113/90 06/12/21 15:30 78 18 146/84 96 06/12/21 15:00 75 124/80 98 06/12/21 14:30 105 H 18 138/77 97 06/12/21 14:00 112/85 97 06/12/21 13:30 100 17 142/96 98 06/12/21 13:23 76 06/12/21 13:14 92 06/12/21 13:00 69 137/95 96 06/12/21 12:55 97 06/12/21 12:53 86 22 137/95 95 06/12/21 12:43 106 H 06/12/21 12:19 97.7 F 106 H 24 174/103 92 L Intake and Output 06/12/21 06/12/21 06/12/21 06:59 14:59 22:59 Other: Weight 47.627 kg Results CBC & Chem 7: 06/12/21 12:50 06/12/21 12:50 Labs: Abnormal Lab Results - Last 24 Hours (Table) 06/12/21 06/12/21 Range/Units 12:50 12:50 WBC 13.0 H (3.8-10.6) k/uL MCV 101.1 H (80.0-100.0) fL Neutrophils # 11.5 H (1.3-7.7) k/uL Lymphocytes # 0.9 L (1.0-4.8) k/uL Sodium 130 L (137-145) mmol/L Carbon Dioxide 20 L (22-30) mmol/L Glucose 117 H (74-99) mg/dL AST 41 H (14-36) U/L
[2021-06-12] MEDS: methylPREDNISolone SOD SUCCI 125 MG/2 ML VIAL IV SCH (18:46)
[2021-06-12] MEDS ORDERED: methylPREDNISolone SOD SUCCI 40 MG/ML 1 ML VIAL IV SCH (21:00)
[2021-06-12] MEDS ORDERED: LATANOPROST 0.005% OPHTH DROPS 2.5 ML BTL RIGHT EYE SCH (21:00)
[2021-06-12] MEDS: METOPROLOL TARTRATE 50 MG TAB PO SCH (21:55)
[2021-06-12] MEDS: GABAPENTIN 300 MG CAP PO SCH (21:56)
[2021-06-12] MEDS: FAMOTIDINE 20 MG TAB PO SCH (21:56)
[2021-06-12] MEDS: CEFDINIR 300 MG CAP PO SCH (22:16)
[2021-06-13] MEDS: methylPREDNISolone SOD SUCCI 125 MG/2 ML VIAL IV SCH ×3 (00:31→12:11)
[2021-06-13] MEDS ORDERED: ZOLPIDEM 5 MG TAB PO PRN (04:38)
[2021-06-13 07:24] LABS: Basophils % (A) 0 %; Eosinophils # (A) 0.1 k/uL (0-0.7); Eosinophils % (A) 1 %; HCT 45.5 % (34.0-46.0); HGB 14.3 gm/dL (11.4-16.0); Lymphocytes # (A) 0.7 k/uL (1.0-4.8); Lymphocytes % (A) 7 %; MCH 32.5 pg (25.0-35.0); MCHC 31.3 g/dL (31.0-37.0); MCV 103.9 fL (80.0-100.0); Macrocytosis Slight; Monocytes # (A) 0.1 k/uL (0-1.0); Monocytes % (A) 1 %; Neutrophils # (A) 9.5 k/uL (1.3-7.7); Neutrophils % (A) 91 %; Platelet Count 263 k/uL (150-450); RBC 4.38 m/uL (3.80-5.40); RDW 13.2 % (11.5-15.5); WBC 10.5 k/uL (3.8-10.6)
[2021-06-13 07:39] LABS: African American GFR (CKD) >90 (>60 ml/min/1.73 sqM); Anion Gap 6 mmol/L; Blood Urea Nitrogen 9 mg/dL (7-17); Calcium 9.3 mg/dL (8.4-10.2); Carbon Dioxide 27 mmol/L (22-30); Chloride 102 mmol/L (98-107); Glucose 153 mg/dL (74-99); Non-African American GFR(CKD) >90 (>60 ml/min/1.73 sqM); Potassium 4.8 mmol/L (3.5-5.1); Sodium 135 mmol/L (137-145)
[2021-06-13] MEDS ORDERED: SYMBICORT 160-4.5 MCG INHALER INHALATION SCH (08:00)
[2021-06-13] MEDS: IPRATROPIUM 0.5 MG/2.5 ML NEBU INHALATION SCH ×2 (08:14→11:19)
[2021-06-13 08:44] VITALS: BP 139/89; RESP 22; TEMP 98.2
[2021-06-13] MEDS ORDERED: AZITHROMYCIN 500 MG TAB PO SCH (09:00)
[2021-06-13] MEDS ORDERED: LORATADINE 10 MG TAB PO SCH (09:00)
[2021-06-13] MEDS ORDERED: ENOXAPARIN 40 MG/0.4 ML SYRINGE SQ SCH (09:00)
[2021-06-13] MEDS ORDERED: FOLIC ACID 1 MG TAB PO SCH (09:00)
[2021-06-13] MEDS ORDERED: DORZOLAMIDE HCL 2% DROPS 10 ML BTL BOTH EYES SCH (09:00)
[2021-06-13] MEDS: FAMOTIDINE 20 MG TAB PO SCH (09:11)
[2021-06-13] MEDS: METOPROLOL TARTRATE 50 MG TAB PO SCH (09:11)
[2021-06-13] MEDS: GABAPENTIN 300 MG CAP PO SCH (09:11)
[2021-06-13] MEDS: CEFDINIR 300 MG CAP PO SCH (09:17)
[2021-06-13 11:33] VITALS: PULSE 103
[2021-06-13 12:07] VITALS: BMI 16.9
--- NOTE | 2021-06-13 16:31 | P.DS ---
Providers Date of admission: 06/12/21 16:27 Expected date of discharge: 06/13/21 Attending physician: Kimmy Sy DO Primary care physician: Nara Walters Hospital Course: Discharge Diagnosis: COPD with acute exacerbation, discharged home with refills for DuoNeb treatments, prednisone taper, and completion of 5 day course of antibiotics with Omnicef and Zithromax. Pt to follow up with pure culture operator Dr. Edmonds in 1 week. Hypertension, Monitor vital signs and continue daily medication regimen with metoprolol. Rheumatoid arthritis, continue home medication regimen withTocilizumab and methotrexate Hospital Course: Patient is a very pleasant 71-year-old female with a past medical history of COPD, fibromyalgia, hypertension, cervical cancer, anxiety, former nicotine dependence, and rheumatoid arthritis. Patient presented to the emergency department with a chief complaint of increasing shortness of breath over the past 2 weeks progressively worsening accompanied by increased chronic cough. Patient reports shortness of breath is worse with exertion and does improve at rest. She denies having any changes in her sputum production. She denies having any recent infections or exposure to known ill contacts, fevers, chills, diaphoresis, headache, lightheadedness, dizziness, chest pain, palpitations, nausea, vomiting, or experiencing any pain/numbness/tingling/swelling in her extremities. In the emergency department patient underwent full evaluation. Patient was found to be tachycardic in the 106 bpm, tachypnea with respiratory rate of 24 breaths per minute, hypertensive with blood pressure 174/103, and 92% on room air. Patient was placed on 2 L O2 via nasal cannula and given breathing treatment, steroids, and one dose of Rocephin. Clinically patient has improved with heart rate 69, blood pressure 137/95, and SpO2 of 97% on 2 L O2 via nasal cannula. EKG was completed revealing normal sinus rhythm at 100 bpm with occasional PACs, no T-wave or ST abnormalities noted showing no signs of acute ischemia. Chest x-ray revealing chronic emphysematous changes with tiny new bilateral pleural effusions. Patient admitted under our services nd monitored overnight. She was given scheduled and as needed DuoNeb treatments, IV steroids, and supplemental oxygen. Patient was then weaned back off oxygen and maintaining oxygen saturations on room air. Patient 97% at rest and with ambulation up and down the hallways maintain SpO2 is 92% or greater at all times. patient reports feeling much better this morning and denies having any shortness of breath while at rest. Patient states previous cough is back to baseline. Patient is medically stable at this time. She is being discharged home with refills for DuoNeb treatments, prednisone taper,and completion of 5 day course of antibiotics with Omnicef and Zithromax. Patient was instructed to complete prednisone taper and then resume daily prednisone 5 mg each morning after taper is completed. Patient to follow up outpatient with PCP Dr. Walters in 1-2 days and with pure culture operator Dr. Edmonds in 1 week. Physical exam: Vital signs reviewed and stable. General: Nontoxic, no distress and appears stated age. Derm: Skin warm and dry, normal coloration for ethnicity. Head: Atraumatic, normocephalic and symmetric. Eyes: EOMs intact, no lid lag, and anicteric sclera Mouth: no lip lesions, mucus membranes moist Cardiovascular: regular rate and rhythm with normal S1S2, no murmur, positive posterior tibial pulses bilaterally, and cap refill < 2 seconds. Lungs: Respirations even, regular, and unlabored on room air. Lungs with equal air entry and diffuse soft expiratory wheezes. No rhonchi, no rales, no crackles and no accessory muscle usage. No conversational dyspnea. Abdominal: soft, nontender to palpation, no guarding, no appreciable organomegaly Ext: ROM intact. No gross muscle atrophy, no edema, no contractures. Neuro: Speech clear, face symmetrical and CN II-XII grossly intact with no noted focal neuro deficits. Psych: Alert and oriented to person, place, time, and situation. Appropriate and pleasant affect. A total of 41 minutes of time were spent preparing this complex discharge summary. Ellis Freed NP rendered care for this patient independently, reviewed the findin gs and plan as documented in the note above. I did not physically speak with or examine the patient on this date. Patient Condition at Discharge: Stable Plan - Discharge Summary Discharge Rx Participant: No New Discharge Prescriptions: New Ipratropium-Albuterol Nebulize [Duoneb 0.5 mg-3 mg/3 ml Soln] 3 ml INHALATION RT-Q2H PRN 30 Days #1 unit PRN Reason: Shortness Of Breath Or Wheezing Cefdinir [Omnicef] 300 mg PO BID 3 Days #6 cap predniSONE See Taper PO DIRECTED 12 Days #30 tab Azithromycin [Zithromax] 500 mg PO DAILY 3 Days #3 tab Continue Folic Acid 1 mg PO DAILY Gabapentin [Neurontin] 600 mg PO BID Metoprolol Tartrate [Lopressor] 50 mg PO BID Hydrocodone/Acetaminophen [Hydrocodone/Acetaminophen 7.5-325] 1 tab PO Q8H PRN PRN Reason: Pain metHOTREXate sodium [Methotrexate] 10 mg PO MO predniSONE 5 mg PO DAILY Zolpidem [Ambien] 10 mg PO HS PRN PRN Reason: Insomnia Cetirizine HCl [Zyrtec] 10 mg PO DAILY Umeclidinium [place] [Incruse Ellipta] 1 puff INHALATION RT-DAILY Fluticasone/Vilanterol [Breo Ellipta 200-25 Mcg Inhaler] 1 puff INHALATION RT-DAILY Dorzolamide HCl/Pf [Dorzolamide 2% Eye Drop] 1 drop BOTH EYES DAILY Ibuprofen [Motrin] 800 mg PO Q8H PRN PRN Reason: Pain Latanoprost [Xalatan 0.005%] 1 drop RIGHT EYE HS Tocilizumab [Actemra] 162 mg SQ Q14D Triamcinolone 0.1% Ointment [Kenalog 0.1% Ointment] 1 applic TOPICAL BID Discharge Medication List Folic Acid 1 mg PO DAILY 07/28/13 [History] Gabapentin [Neurontin] 600 mg PO BID 07/28/13 [History] Hydrocodone/Acetaminophen [Hydrocodone/Acetaminophen 7.5-325] 1 tab PO Q8H PRN 07/28/13 [History] Metoprolol Tartrate [Lopressor] 50 mg PO BID 07/28/13 [History] metHOTREXate sodium [Methotrexate] 10 mg PO MO 07/28/13 [History] predniSONE 5 mg PO DAILY 07/17/16 [History] Cetirizine HCl [Zyrtec] 10 mg PO DAILY 09/16/19 [History] Fluticasone/Vilanterol [Breo Ellipta 200-25 Mcg Inhaler] 1 puff INHALATION RT- DAILY 09/16/19 [History] Umeclidinium [place] [Incruse Ellipta] 1 puff INHALATION RT-DAILY 09/16/19 [History] Zolpidem [Ambien] 10 mg PO HS PRN 09/16/19 [History] Dorzolamide HCl/Pf [Dorzolamide 2% Eye Drop] 1 drop BOTH EYES DAILY 06/12/21 [History] Ibuprofen [Motrin] 800 mg PO Q8H PRN 06/12/21 [History] Latanoprost [Xalatan 0.005%] 1 drop RIGHT EYE HS 06/12/21 [History] Tocilizumab [Actemra] 162 mg SQ Q14D 06/12/21 [History] Triamcinolone 0.1% Ointment [Kenalog 0.1% Ointment] 1 applic TOPICAL BID 06/12/21 [History] Azithromycin [Zithromax] 500 mg PO DAILY 3 Days #3 tab 06/13/21 [Rx] Cefdinir [Omnicef] 300 mg PO BID 3 Days #6 cap 06/13/21 [Rx] Ipratropium-Albuterol Nebulize [Duoneb 0.5 mg-3 mg/3 ml Soln] 3 ml INHALATION RT-Q2H PRN 30 Days #1 unit 06/13/21 [Rx] predniSONE See Taper PO DIRECTED 12 Days #30 tab 06/13/21 [Rx] Follow up Appointment(s)/Referral(s): Nara Walters MD [Primary Care Provider] - 1-2 days Sixto Edmonds MD [STAFF PHYSICIAN] - 1 Week Patient Instructions/Handouts: COPD (Chronic Obstructive Pulmonary Disease) (DC) Activity/Diet/Wound Care/Special Instructions: Activity: As tolerated. Take breaks as needed. Diet: Heart healthy and carb consistent diet. Avoid salts, or foods with hidden salts such as canned or boxed foods and frozen dinners. Extra salt makes your heart work harder and traps the fluid in your body for longer. May require 4-6 small meals daily + high-calorie/high-protein oral nutrition supplement 1-3x daily to meet nutrition needs upon discharge. Special Instructions: Take all of your medications as directed and remember to keep all of your doctor's appointments and follow-up as needed. Please remember to use your nebulizer treatments scheduled every 4 hours and as needed for shortness of breath and/or wheezing. It was truly great to meet you, I truly hope you have an amazing time going home to your jessica puppy, Qiana. You are being discharged home with a prednisone taper, it is important to take this medication as directed. Then you may resume your 5 mg prednisone tablets per day once taper is completed. Thank you for allowing us to participate in your care, it was truly a pleasure having you for our patient!!! Discharge Disposition: HOME SELF-CARE
== END 2021-06-13 13:03 | disposition home or self-care (01) ==
LOC: EC 12:18 → 4SSUR 16:27 → 6NMEDSUR 21:34
PROVIDERS: ADMIT Internal Medicine; ATTEND Internal Medicine
DX: J44.1 Chronic obstructive pulmonary disease with (acute) exacerbation (principal); E87.1 Hypo-osmolality and hyponatremia; M06.9 Rheumatoid arthritis, unspecified; J90 Pleural effusion, not elsewhere classified; I10 Essential (primary) hypertension; M79.7 Fibromyalgia; L98.9 Disorder of the skin and subcutaneous tissue, unspecified; J30.2 Other seasonal allergic rhinitis; F41.9 Anxiety disorder, unspecified; F32.A Depression, unspecified; Z20.822 Contact with and (suspected) exposure to COVID-19; Z79.51 Long term (current) use of inhaled steroids; Z79.52 Long term (current) use of systemic steroids; Z79.899 Other long term (current) drug therapy; I49.9 Cardiac arrhythmia, unspecified; Z85.41 Personal history of malignant neoplasm of cervix uteri; Z87.891 Personal history of nicotine dependence; Z86.14 Personal history of Methicillin resistant Staphylococcus aureus infection; Z86.19 Personal history of other infectious and parasitic diseases; Z98.890 Other specified postprocedural states; Z82.49 Family history of ischemic heart disease and other diseases of the circulatory system; Z82.3 Family history of stroke; Z80.9 Family history of malignant neoplasm, unspecified
CPT/HCPCS: 96372; 96376 ×2; 96365; 96375; 99285; 36415; 94640 ×2; 93005; 83880; 80053; 80048; 83605; 83735; 84484; 85025 ×2; 85610; 85730; 87040; 87635; 71046; G0378 ×3; J2930 ×2; J1650; J0696

== ENCOUNTER → 2022-12-19 | Outpatient (CLI) | payer MEDICARE, OTHER ==
--- NOTE | 2022-12-19 12:51 | US ---
EXAMINATION TYPE: US venous doppler duplex LE DATE OF EXAM: 12/19/2022 12:36 PM COMPARISON: NONE CLINICAL INDICATION: Female, 72 years old with history of R60.0 EDEMA; Bilateral lower leg swelling a nd redness SIDE PERFORMED: Bilateral TECHNIQUE: The lower extremity deep venous system is examined utilizing real time linear array sonog masoud with graded compression, doppler sonography and color-flow sonography. VESSELS IMAGED: Common Femoral Vein Deep Femoral Vein Greater Saphenous Vein * Femoral Vein Popliteal Vein Small Saphenous Vein * Proximal Calf Veins (* superficial vessels) Right Leg: Appears negative for DVT Left Leg: Appears negative for DVT IMPRESSION: Grayscale, color doppler, spectral doppler imaging performed of the deep veins of the lo wer extremities. There is normal flow, compressibility, vascular waveforms.
== END | disposition home or self-care (01) ==
LOC: RADUSWWP 12:00
PROVIDERS: ATTEND Internal Medicine Critical Care Medicine
DX: R60.0 Localized edema (principal)
CPT/HCPCS: 93970

== ENCOUNTER → 2023-04-07 | Outpatient (CLI) | payer MEDICARE, OTHER ==
--- NOTE | 2023-04-08 09:30 | MM ---
Reason for Exam: Screening (asymptomatic). Last mammogram was performed 2 year(s) and 0 month(s) ago. Patient History: Menarche at age 14. First Full-Term at age 22. Postmenopausal. Endometrial cancer, age 42. Maternal aunt had breast cancer. Risk Values: Indu 5 year model risk: 1.5%. NCI Lifetime model risk: 4.5%. Prior Study Comparison: 07/05/2014 Screening Mammogram, [facility]. 02/24/2018 Bilateral Screening Mammogram, [facility]. 04/25/2021 Bilateral Screening Mammogram, [facility]. Tissue Density: The breast tissue is heterogeneously dense. This may lower the sensitivity of mammography. Findings: Analyzed By CAD. There is no suspicious group of microcalcifications or new suspicious mass. Benign-appearing calcifications left breast. Overall Assessment: Benign, BI-RAD 2 Management: Screening Mammogram of both breasts in [address] [facility] will attempt to contact patient to return for supplemental views and ultrasound if indicated. Patient should continue monthly self-breast exams. A clinical breast exam by your physician is recommended on an annual basis. This exam should not preclude additional follow-up of suspicious palpable abnormalities. Note on Indu scores and lifetime risk: 1. A Indu score greater than 3% is considered moderate risk. If this is the case, consider specialist referral to assess eligibility for a risk reducing agent. 2. If overall lifetime risk for the development of breast cancer is 20% or higher, the patient may qualify for future screening with alternating mammogram and breast MRI. Electronically signed and approved by: Chuy Nicholson DO
== END | disposition home or self-care (01) ==
LOC: RADMAMWWP 15:23
PROVIDERS: ATTEND Family Medicine
DX: Z12.31 Encounter for screening mammogram for malignant neoplasm of breast (principal); Z78.0 Asymptomatic menopausal state; Z80.3 Family history of malignant neoplasm of breast
CPT/HCPCS: 77063; 77067